=== PATIENT | female | born 1970 | race American Indian/Alaskan Native ===

== ENCOUNTER 2017-01-02 20:16 | Emergency (ER) | payer BC ==
[2017-01-02 20:16] VITALS: BMI 35.6
[2017-01-02] MEDS ORDERED: diaZEpam 10 mg/2 ml Inj IVP ONE (21:12)
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
[2017-01-02] MEDS ORDERED: Morphine 4 mg/ml ISec IVP STA (22:35)
[2017-01-02 23:42] VITALS: BP 126/83; PULSE 86; RESP 20; TEMP 98; O2SAT 99
== END 2017-01-02 23:43 | disposition home or self-care (01) ==
LOC: ED 20:16
DX: M54.30 Sciatica, unspecified side (principal); M54.9 Dorsalgia, unspecified
CPT/HCPCS: 96374; 96375; 99283; J1100; J1885; J2270; J3360

== ENCOUNTER 2017-03-04 13:36 | Emergency (ER) | payer BC ==
[2017-03-04 13:36] VITALS: BMI 35.6
[2017-03-04 13:40] VITALS: BP 152/91; TEMP 98
--- NOTE | 2017-03-04 13:59 | ED PDOC ---
Arrival/HPI - General Chief Complaint: Lower Extremity Problem/Injury Time Seen by Provider: 03/04/17 13:44 Historian: Patient - History of Present Illness Narrative History of Present Illness (Text): 03/04/17 13:50 Kinga Wesley is a 47 year old female, whose past medical history includes high cholesterol and sciatica, who presents to the emergency department complaining of intermittent pain to lateral posterior calf for about a month. Patient notes that these symptoms are different from her normal sciatica symptoms. Patient denies any swelling, numbness, weakness, recent surgeries, prolonged immobilization, or any other complaints at this time. Time/Duration: < month Symptom Onset: Gradual Symptom Course: Unchanged, Intermittent Severity Level: Mild Activities at Onset: Light Context: Home Past Medical History - Provider Review Nursing Documentation Reviewed: Yes - Infectious Disease Hx of Infectious Diseases: None - Tetanus Immunization Tetanus Immunization: Unknown - Reproductive Menopause: Yes - Psychiatric Hx Psychophysiologic Disorder: No Hx Substance Use: No - Surgical History Hx Tubal Ligation: Yes Other/Comment: tube ligation. - Anesthesia Hx Anesthesia: No Hx Anesthesia Reactions: No Hx Malignant Hyperthermia: No Family/Social History - Physician Review Nursing Documentation Reviewed: Yes Family/Social History: No Known Family HX Smoking Status: Never Smoked Hx Alcohol Use: No Hx Substance Use: No Allergies/Home Meds Allergies/Adverse Reactions: Allergies No Known Allergies Allergy (Verified 01/02/17 20:33) Home Medications: Home Meds Medication Instructions Recorded Confirmed Pnv No.95/Ferrous Fum/Folic AC 1 tab PO DAILY 03/04/17 03/04/17 [Prenavite] traMADol [Ultram] 50 mg PO Q12H PRN 03/04/17 03/04/17 Review of Systems - Physician Review All systems were reviewed & negative as marked: Yes - Review of Systems Constitutional: absent: Fevers, Night Sweats Eyes: absent: Vision Changes ENT: absent: Hearing Changes Respiratory: absent: SOB, Cough Cardiovascular: absent: Chest Pain Gastrointestinal: absent: Abdominal Pain Genitourinary Female: absent: Dysuria Musculoskeletal: Other (Pain to lateral posterior calf). absent: Arthralgias Neurological: absent: Headache Endocrine: absent: Diaphoresis Hemo/Lymphatic: absent: Adenopathy Psychiatric: absent: Anxiety Physical Exam Vital Signs Reviewed: Yes Vital Signs Temp Pulse Resp BP Pulse Ox 03/04/17 14:53 96 H 17 99 08/10/17 13:40 98 F 101 H 16 152/91 H 98 Temperature: Afebrile Blood Pressure: Hypertensive Pulse: Tachycardic Respiratory Rate: Normal Appearance: Positive for: Well-Appearing, Non-Toxic, Comfortable Pain Distress: None Mental Status: Positive for: Alert and Oriented X 3 - Systems Exam Head: Present: Atraumatic, Normocephalic Pupils: Present: PERRL Extroacular Muscles: Present: EOMI Conjunctiva: Present: Normal Mouth: Present: Moist Mucous Membranes Neck: Present: Normal Range of Motion Respiratory/Chest: Present: Clear to Auscultation, Good Air Exchange. No: Respiratory Distress, Accessory Muscle Use Cardiovascular: Present: Regular Rate and Rhythm, Normal S1, S2. No: Murmurs Abdomen: Present: Normal Bowel Sounds. No: Tenderness, Distention, Peritoneal Signs Back: Present: Normal Inspection Upper Extremity: Present: Normal Inspection. No: Cyanosis, Edema Lower Extremity: Present: Tenderness (to left lateral posterior calf; "ropiness " to muscle) Neurological: Present: GCS=15, CN II-XII Intact, Speech Normal Skin: Present: Warm, Dry, Normal Color. No: Rashes Psychiatric: Present: Alert, Oriented x 3, Normal Insight, Normal Concentration Medical Decision Making ED Course and Treatment: 03/04/17 13:50 Impression: 47 year old female complaining of intermittent pain to left lateral posterior calf for about one month Differential Diagnosis included but are not limited to: Sciatica vs. DVT Plan: -- Left Lower Extremity Ultrasound -- Reassess and disposition Prior Visits: Notes and results from previous visits were reviewed. Patient last seen in the ED on 01/02/17 for left sided buttocks pain that radiates posteriorly to her lower leg x 6days. Patient was discharged home. Progress Notes: 03/04/17 14:54 Patient's US is negative for DVT. She was given Toradol for pain. She will f/u with her PMD this week. - RAD Interpretation Radiology Orders: 03/04/17 13:53 DUPLEX LOWER EXTRM VEIN LEFT [US] Stat - Medication Orders Current Medication Orders: Discontinued Medications Ketorolac Tromethamine (Toradol) 60 mg IM STAT STA Stop: 03/04/17 14:40 Last Admin: 03/04/17 14:52 Dose: 60 mg - Scribe Statement The provider has reviewed the documentation as recorded by the Pamela Moss Provider Scribe Attestation: All medical record entries made by the Tapanibe were at my direction and personally dictated by me. I have reviewed the chart and agree that the record accurately reflects my personal performance of the history, physical exam, medical decision making, and the department course for this patient. I have also personally directed, reviewed, and agree with the discharge instructions and disposition. Disposition/Present on Arrival - Present on Arrival Any Indicators Present on Arrival: No History of DVT/PE: No History of Uncontrolled Diabetes: No Urinary Catheter: No History of Decub. Ulcer: No History Surgical Site Infection Following: None - Disposition Have Diagnosis and Disposition been Completed?: Yes Diagnosis: Leg pain Disposition: HOME/ ROUTINE Disposition Time: 14:54 Patient Plan: Discharge Condition: IMPROVED Discharge Instructions (ExitCare): Leg Pain (ED) Additional Instructions: Ejjuan manuel, thank you for letting us take care of you today. Your provider was Dr. Lewis. You were treated for Leg Pain. The emergency medical care you received today was directed at your acute symptoms. If you were prescribed any medication, please fill it and take as directed. It may take several days for your symptoms to resolve. Return to the Emergency Department if your symptoms worsen, do not improve, or if you have any other problems. Please contact your doctor or call one of the physicians/clinics you have been referred to that are listed on the Patient Visit Information form that is included in your discharge packet. Bring any paperwork you were given at discharge with you along with any medications you are taking to your follow up visit. Our treatment cannot replace ongoing medical care by a primary care provider (PCP) outside of the emergency department. Thank you for allowing the [facility] team to be part of your care today. If you had an X-Ray or CT scan: A Radiologist will review the ED reading if any change in treatment is needed we will contact you. If you had a blood, urine, or wound culture: It will take several days for the results, if any change in treatment is needed we will contact you. If you had an STI test: It will take 48 hours for the results. Please call after 1 week if you have not heard back. Referrals: [facility], [Non-Staff] - Follow up with primary Forms: [employer] (Vietnamese)
[2017-03-04 14:54] VITALS: PULSE 96; RESP 17; O2SAT 99
--- NOTE | 2017-03-04 19:54 | US ---
PROCEDURE: Left lower extremity venous US HISTORY: Leg pain and swelling. Evaluate for DVT. PHYSICIAN(S): Bill Demarco MD. TECHNIQUE: Duplex sonography and color-flow Doppler with graded compression were used to evaluate the deep venous system of the left lower extremity. FINDINGS: The visualized deep venous system of the left lower extremity is sonographically normal and compressible. Normal wave forms and augmentation are seen. There is no sonographic evidence for deep venous thrombosis in the visualized segments of the left lower extremity. IMPRESSION: 1. No sonographic evidence for deep venous thrombosis in the visualized segments of the left lower extremity.
== END 2017-03-04 14:54 | disposition home or self-care (01) ==
LOC: ED 13:36
DX: M79.605 Pain in left leg (principal); E78.00 Pure hypercholesterolemia, unspecified
CPT/HCPCS: 93971; 96372; 99284; J1885

== ENCOUNTER 2017-11-08 12:10 | Emergency (ER) | payer BC ==
[2017-11-08 12:33] VITALS: BMI 33.2
[2017-11-08 12:36] VITALS: BP 144/96; PULSE 80; RESP 18; TEMP 97.9; O2SAT 97
--- NOTE | 2017-11-08 12:51 | ED PDOC ---
Arrival/HPI - General Chief Complaint: Eye Problem Time Seen by Provider: 11/08/17 12:48 - History of Present Illness Narrative History of Present Illness (Text): 47 year old F c Past medical history p/w L eye redness since this morning. Yesterday, had patient who also had pink eye. Denies itchiness, pain. It is irritated. Denies cough, sore throat, fever. Denies vision change, photophobia. Does not wear contact lenses. Past Medical History - Infectious Disease Hx of Infectious Diseases: None - Tetanus Immunization Tetanus Immunization: Unknown - Psychiatric Hx Psychophysiologic Disorder: No Hx Substance Use: No - Surgical History Hx Tubal Ligation: Yes Other/Comment: tube ligation. - Anesthesia Hx Anesthesia: No Hx Anesthesia Reactions: No Hx Malignant Hyperthermia: No Family/Social History Family/Social History: No Known Family HX Smoking Status: Never Smoked Hx Alcohol Use: Yes Frequency of alcohol use: Socially Hx Substance Use: No Allergies/Home Meds Allergies/Adverse Reactions: Allergies No Known Allergies Allergy (Verified 01/02/17 20:33) Home Medications: Home Meds Medication Instructions Recorded Confirmed Rosuvastatin Calcium [Crestor] 1 tab PO HS 11/08/17 11/08/17 Review of Systems - Physician Review All systems were reviewed & negative as marked: Yes - Review of Systems Constitutional: absent: Fevers Eyes: absent: Vision Changes Physical Exam - Physical Exam Narrative Physical Exam (Text): Gen: NAD Head: NC Eyes: L eye with subconjunctival injection. No hyphema. No discharge. PERRL. EOMI. Skin: No facial rash Neuro: Alert Vital Signs Temp Pulse Resp BP Pulse Ox 11/08/17 12:35 97.9 F 80 18 144/96 H 97 Medical Decision Making ED Course and Treatment: Will treat with antibiotic eye drops. F/u Ophtho. Return to Emergency department for worsening pain or vison change. Disposition/Present on Arrival - Present on Arrival Any Indicators Present on Arrival: No History of DVT/PE: No History of Uncontrolled Diabetes: No Urinary Catheter: No History of Decub. Ulcer: No History Surgical Site Infection Following: None - Disposition Have Diagnosis and Disposition been Completed?: Yes Diagnosis: Conjunctivitis Disposition: HOME/ ROUTINE Disposition Time: 13:06 Patient Plan: Discharge Condition: STABLE Discharge Instructions (ExitCare): Conjunctivitis ([place]) Prescriptions: Polymyxin/Trimethoprim Sulfate [Polytrim Ophth Soln] 1 drop OU Q3H #1 bottle Referrals: Anibal Cuadra [Staff Provider] - Follow up with primary Forms: XTRM (Yi)
== END 2017-11-08 13:31 | disposition home or self-care (01) ==
LOC: ED 12:10
DX: H10.9 Unspecified conjunctivitis (principal)

== ENCOUNTER 2018-03-21 10:02 | Emergency (ER) | payer BC ==
[2018-03-21 10:16] VITALS: BMI 34.4
[2018-03-21 10:23] VITALS: RESP 18
--- NOTE | 2018-03-21 10:32 | ED PDOC ---
Arrival/HPI - General Chief Complaint: Female Genitourinary Time Seen by Provider: 03/21/18 10:20 Historian: Patient - History of Present Illness Narrative History of Present Illness (Text): 03/21/18 10:29 48yo female with pmhx of chronic lower back pain who present with complaint of worsening lower back pain x 3days. States she ran out of her pain medication and is scheduled to see a pain management. This pain is similar to her previous back pain. Also reports dysuria and odorous urine for 2days. she denies nausea, vomiting, diarrhea, abdominal pain, fever, chills, urinary/fecal incontinence, saddle anesthesia any other complaint. Past Medical History - Provider Review Nursing Documentation Reviewed: Yes - Infectious Disease Hx of Infectious Diseases: None - Tetanus Immunization Tetanus Immunization: Unknown - Reproductive Menopause: Yes - Psychiatric Hx Psychophysiologic Disorder: No Hx Substance Use: No - Surgical History Hx Tubal Ligation: Yes Other/Comment: tube ligation. - Anesthesia Hx Anesthesia: No Hx Anesthesia Reactions: No Hx Malignant Hyperthermia: No Family/Social History - Physician Review Nursing Documentation Reviewed: Yes Family/Social History: Unknown Family HX Smoking Status: Never Smoked Hx Alcohol Use: Yes Hx Substance Use: No Allergies/Home Meds Allergies/Adverse Reactions: Allergies No Known Allergies Allergy (Verified 01/02/17 20:33) Home Medications: Home Meds Medication Instructions Recorded Confirmed Rosuvastatin Calcium [Crestor] 1 tab PO HS 11/08/17 11/08/17 Review of Systems - Physician Review All systems were reviewed & negative as marked: Yes - Review of Systems Constitutional: Normal Eyes: Normal ENT: Normal Respiratory: Normal Cardiovascular: Normal Gastrointestinal: Normal Genitourinary Female: Dysuria. absent: Frequency, Hematuria Musculoskeletal: Back Pain Skin: Normal Neurological: Normal Endocrine: Normal Hemo/Lymphatic: Normal Psychiatric: Normal Physical Exam Vital Signs Reviewed: Yes Vital Signs Temp Pulse Resp BP Pulse Ox 03/21/18 10:16 98.8 F 90 18 148/97 H 99 Temperature: Afebrile Blood Pressure: Normal Pulse: Regular Respiratory Rate: Normal Appearance: Positive for: Well-Appearing, Non-Toxic, Comfortable Pain Distress: None Mental Status: Positive for: Alert and Oriented X 3 - Systems Exam Head: Present: Atraumatic, Normocephalic Pupils: Present: PERRL Extroacular Muscles: Present: EOMI Conjunctiva: Present: Normal Mouth: Present: Moist Mucous Membranes Neck: Present: Normal Range of Motion Respiratory/Chest: Present: Clear to Auscultation, Good Air Exchange. No: Respiratory Distress, Accessory Muscle Use Cardiovascular: Present: Regular Rate and Rhythm, Normal S1, S2. No: Murmurs Abdomen: No: Tenderness, Distention, Peritoneal Signs, Rebound, Guarding, McBurney's Point Tender, Rovsing's Sign Present Back: Present: Midline Tenderness. No: Paraspinal Tenderness, Pain with Leg Raise Upper Extremity: Present: Normal Inspection. No: Cyanosis, Edema Lower Extremity: Present: Normal Inspection. No: Edema Neurological: Present: GCS=15, CN II-XII Intact, Speech Normal Skin: Present: Warm, Dry, Normal Color. No: Rashes Psychiatric: Present: Alert, Oriented x 3, Normal Insight, Normal Concentration Medical Decision Making ED Course and Treatment: 03/21/18 11:08 48yo female in ED for chronic lower back pain and dysuria. She have chronic lower back pain, and have had this pain in the past. She is ambulatory and neurologically intact. Imaging is not needed at this time. Her pain was controlled in ED with medication she have UTI and keflex was ordered she will be DC home with Naprosyn, felxeril, lidoderm and Keflex. referred to her PMD/pain management. - Lab Interpretations Lab Results: Lab Results 03/21/18 10:40: Urine Color Yellow, Urine Appearance Cloudy, Urine pH 6.0, Ur Specific Topmost >= 1.030, Urine Protein 30 H, Urine Glucose (UA) Negative, Urine Ketones Negative, Urine Blood Moderate H, Urine Nitrate Negative, Urine Bilirubin Negative, Urine Urobilinogen 1.0 H, Ur Leukocyte Esterase Moderate H, Urine RBC Pending, Urine WBC Pending - Medication Orders Current Medication Orders: Discontinued Medications Cyclobenzaprine HCl (Flexeril) 10 mg PO STAT STA Stop: 03/21/18 10:21 Last Admin: 03/21/18 11:03 Dose: 10 mg Ketorolac Tromethamine (Toradol) 60 mg IM STAT STA Stop: 03/21/18 10:21 Last Admin: 03/21/18 11:03 Dose: 60 mg MAR Pain Assessment Document 03/21/18 11:03 MARY ALICE (Rec: 03/21/18 11:03 [id number] [id number]) Pain Reassessment Is this a pain reassessment? No Sleep Is patient sleeping during reassessment? No Presence of Pain Presence of Pain Yes Pain Scale Used Pain Scale Used Numeric IM Administration Charges Document 03/21/18 11:03 MARY ALICE (Rec: 03/21/18 11:03 [id number] Charges for Administration # of IM Administrations 1 Disposition/Present on Arrival - Present on Arrival Any Indicators Present on Arrival: No History of DVT/PE: No History of Uncontrolled Diabetes: No Urinary Catheter: No History of Decub. Ulcer: No History Surgical Site Infection Following: None - Disposition Have Diagnosis and Disposition been Completed?: Yes Diagnosis: Chronic back pain, UTI (urinary tract infection) Disposition: HOME/ ROUTINE Disposition Time: 11:15 Patient Plan: Discharge Condition: STABLE Discharge Instructions (ExitCare): Urinary Tract Infections in Adults, Chronic Pain (DC) Additional Instructions: Follow up with your doctor/Pain management Return to ED for any new or worsening symptoms Drink plenty of fluid and take cranberry supplement Prescriptions: Cephalexin [Keflex] 500 mg PO TID #21 capsule Cyclobenzaprine [Cyclobenzaprine HCl] 10 mg PO TID #12 tab Lidocaine 5% [Lidoderm] 1 ea TD BID #10 patch Naproxen [Naprosyn] 500 mg PO BID #20 tab Referrals: Angie Sherman MD [Medical Doctor] - Follow up with primary Forms: [employer] (Lao)
[2018-03-21 11:01] LABS: URINE BILIRUBIN NEGATIVE (NEGATIVE); URINE BLOOD MODERATE (NEGATIVE); URINE GLUCOSE (UA) NEGATIVE (NEGATIVE); URINE LEUKOCYTE ESTERASE MODERATE Leu/uL (NEGATIVE); URINE PROTEIN 30 mg/dL (<30 mg/dL)
[2018-03-21 11:06] LABS: URINE APPEARANCE CLOUDY (CLEAR); URINE COLOR YELLOW (YELLOW)
[2018-03-21 11:10] LABS: URINE RBC 25 - 30 /hpf (0-2); URINE WBC 25 - 30 /hpf (0-6)
[2018-03-21 11:11] LABS: URINE BACTERIA MANY (NEG)
[2018-03-21 11:54] VITALS: BP 137/83; PULSE 82; TEMP 98.7; O2SAT 98
== END 2018-03-21 11:51 | disposition home or self-care (01) ==
LOC: ED 10:02
DX: G89.29 Other chronic pain (principal); M54.5 Low back pain; N39.0 Urinary tract infection, site not specified
CPT/HCPCS: 81001; 87086; 96372; 99282; J1885

== ENCOUNTER 2018-11-29 10:11 | Emergency (ER) | payer BC ==
[2018-11-29 10:11] VITALS: BMI 34.4
[2018-11-29 10:27] VITALS: TEMP 98.8; O2SAT 99
[2018-11-29] MEDS ORDERED: DiphenhydrAMINE 50 mg/ml Inj IVP STA (10:32)
[2018-11-29] MEDS ORDERED: Sodium Chloride 0.9% 1,000 ML IV STA (10:32)
--- NOTE | 2018-11-29 11:50 | ED PDOC ---
Arrival/HPI - General Chief Complaint: Headache Historian: Patient - History of Present Illness Narrative History of Present Illness (Text): 11/29/18 11:51 75 year old F with pmh of hypertension presents complaining of headache and left eye pressure radiating to right eye traveling down neck since yesterday. Patient also report blurry vision but did not lose any vision. Patient mentions she is non complaint with hypertension medications. Patient denies any fevers, chills, dizziness, chest pain, shortness of breath, dyspnea on exertion, cough, diaphoresis, abdominal pain, nausea, vomiting, diarrhea, back pain, or any other complaint. Time/Duration: 24 hours Symptom Onset: Sudden Symptom Course: Unchanged Activities at Onset: Light Context: Home Past Medical History - Provider Review Nursing Documentation Reviewed: Yes - Infectious Disease Hx of Infectious Diseases: None - Tetanus Immunization Tetanus Immunization: Unknown - Reproductive Menopause: Yes - Psychiatric Hx Psychophysiologic Disorder: No Hx Substance Use: No - Surgical History Hx Tubal Ligation: Yes Other/Comment: tube ligation. - Anesthesia Hx Anesthesia: No Hx Anesthesia Reactions: No Hx Malignant Hyperthermia: No Family/Social History - Physician Review Nursing Documentation Reviewed: Yes Family/Social History: Unknown Family HX Smoking Status: Never Smoked Hx Alcohol Use: Yes Hx Substance Use: No Allergies/Home Meds Allergies/Adverse Reactions: Allergies No Known Allergies Allergy (Verified 01/02/17 20:33) Home Medications: Home Meds Medication Instructions Recorded Confirmed Rosuvastatin Calcium [Crestor] 1 tab PO HS 11/08/17 11/08/17 Review of Systems - Physician Review All systems were reviewed & negative as marked: Yes - Review of Systems Constitutional: absent: Fevers Eyes: Vision Changes (blurry), Eye Pain ENT: absent: Sore Throat, Rhinorrhea, Epistaxis Respiratory: absent: SOB, Cough, Wheezing Cardiovascular: absent: Chest Pain, Palpitations Gastrointestinal: absent: Abdominal Pain, Diarrhea, Nausea, Vomiting Genitourinary Female: absent: Dysuria, Hematuria Musculoskeletal: absent: Arthralgias Skin: absent: Rash, Laceration, Cellulitis Neurological: Headache. absent: Dizziness, Focal Weakness, Speech Changes, Facial Droop, Disequilibrium Physical Exam Vital Signs Reviewed: Yes Vital Signs Temp Pulse Resp BP Pulse Ox 11/29/18 10:22 98.8 F 87 18 127/81 99 Temperature: Afebrile Blood Pressure: Normal Pulse: Regular Respiratory Rate: Normal Appearance: Positive for: Well-Appearing, Non-Toxic, Comfortable Pain Distress: Mild Mental Status: Positive for: Alert and Oriented X 3 - Systems Exam Head: Present: Atraumatic, Normocephalic Pupils: Present: PERRL Extroacular Muscles: Present: EOMI Conjunctiva: Present: Normal Mouth: Present: Moist Mucous Membranes Neck: Present: Normal Range of Motion Respiratory/Chest: Present: Clear to Auscultation, Good Air Exchange. No: Respiratory Distress, Accessory Muscle Use Cardiovascular: Present: Regular Rate and Rhythm, Normal S1, S2. No: Murmurs Abdomen: No: Tenderness, Distention, Peritoneal Signs Back: Present: Normal Inspection Upper Extremity: Present: Normal Inspection. No: Cyanosis, Edema Lower Extremity: Present: Normal Inspection. No: Edema Neurological: Present: GCS=15, CN II-XII Intact, Speech Normal Skin: Present: Warm, Dry, Normal Color. No: Rashes Psychiatric: Present: Alert, Oriented x 3, Normal Insight, Normal Concentration Medical Decision Making ED Course and Treatment: 11/29/18 11:55 Impression: 75 year old F presents complaining of headache and left eye pressure radiating to right eye traveling down neck since yesterday. Patient also report blurry vision but did not lose any vision. Patient mentions she is non complaint with hypertension medications Plan: -- Decadron -- Benadryl -- Toradol -- Reglan -- Reassess and disposition Prior Visits: Notes and results from previous visits were reviewed. Progress Notes: - Medication Orders Current Medication Orders: Discontinued Medications Dexamethasone (Decadron Inj) 10 mg IVP STAT STA Stop: 11/29/18 10:33 Last Admin: 11/29/18 11:40 Dose: 10 mg IVP Administration Document 11/29/18 11:40 CD (Rec: 11/29/18 11:40 CD [facility] [place] [facility] [place] Charges for Administration # of IVP Administrations 1 Diphenhydramine HCl (Benadryl) 50 mg IVP STAT STA Stop: 11/29/18 10:33 Last Admin: 11/29/18 11:40 Dose: 50 mg IVP Administration Document 11/29/18 11:40 CD (Rec: 11/29/18 11:40 CD [facility] [place] [facility] [place] Charges for Administration # of IVP Administrations 1 Sodium Chloride (Sodium Chloride 0.9%) 1,000 mls @ 999 mls/hr IV .Q1H1M STA Stop: 11/29/18 11:32 Last Admin: 11/29/18 11:38 Dose: 999 mls/hr eMAR Start Stop Document 11/29/18 11:38 CD (Rec: 11/29/18 11:38 CD [facility] [place] [facility] [place] Intravenous Solution Start Date 11/29/18 Start Time 11:38 End Date 11/29/18 End time 12:39 Total Infusion Time 61 Ketorolac Tromethamine (Toradol) 60 mg IM STAT STA Stop: 11/29/18 10:33 Last Admin: 11/29/18 11:40 Dose: 60 mg MAR Pain Assessment Document 11/29/18 11:40 CD (Rec: 11/29/18 11:40 CD [facility] [place] [facility] [place] Pain Reassessment Is this a pain reassessment? No Sleep Is patient sleeping during reassessment? No Presence of Pain Presence of Pain Yes Pain Scale Used Protocol: PSCALES Pain Scale Used Numeric Location Pain Location Body Multi Line Claims Adjuster IM Administration Charges Document 11/29/18 11:40 CD (Rec: 11/29/18 11:40 CD [facility] [place] [facility] [place] Charges for Administration # of IM Administrations 1 Metoclopramide HCl (Reglan) 10 mg IVP STAT STA Stop: 11/29/18 10:33 Last Admin: 11/29/18 11:40 Dose: 10 mg IVP Administration Document 11/29/18 11:40 CD (Rec: 11/29/18 11:40 CD [facility] [place] [facility] [place] Charges for Administration # of IVP Administrations 1 - Scribe Statement The provider has reviewed the documentation as recorded by the Pamela Wills All medical record entries made by the Tapanibjaqui were at my direction and personally dictated by me. I have reviewed the chart and agree that the record accurately reflects my personal performance of the history, physical exam, medical decision making, and the department course for this patient. I have also personally directed, reviewed, and agree with the discharge instructions and disposition. Disposition/Present on Arrival - Present on Arrival Any Indicators Present on Arrival: No History of DVT/PE: No History of Uncontrolled Diabetes: No Urinary Catheter: No History of Decub. Ulcer: No History Surgical Site Infection Following: None - Disposition Have Diagnosis and Disposition been Completed?: Yes Diagnosis: Tension headache Disposition: HOME/ ROUTINE Disposition Time: 13:14 Patient Plan: Discharge Condition: IMPROVED Discharge Instructions (ExitCare): Headache, Adult (DC), Tension Headache (DC) Print Language: ALBANIAN Additional Instructions: All medical record entries made by the Scribe were at my direction and personally dictated by me. I have reviewed the chart and agree that the record accurately reflects my personal performance of the history, physical exam, medical decision making, and the department course for this patient. I have also personally directed, reviewed, and agree with the discharge instructions and disposition. Please follow up with your PCP Try to schedule an appointment with the neurologist listed in your paperwork Prescriptions: Metoclopramide HCl [Reglan] 10 mg PO Q6H #10 tablet Naproxen 500 mg PO BID #10 tab Referrals: Terrell Weaver MD [Staff Provider] - Follow up with primary Forms: [facility] (Ukrainian), WORK NOTE
[2018-11-29 12:21] VITALS: BP 146/95; PULSE 89; RESP 19
== END 2018-11-29 13:50 | disposition home or self-care (01) ==
LOC: ED 10:11
DX: G44.209 Tension-type headache, unspecified, not intractable (principal); I10 Essential (primary) hypertension
CPT/HCPCS: 81025; 96361; 96372; 96374; 96375; 99285; J1100; J1200; J1885; J2765; J7030